=== PATIENT | male | born 1965 | race African-American/Black ===

== ENCOUNTER 2019-03-13 15:34 | Emergency (ER) | payer MEDICAID ==
[~2019-03-13] VITALS: Ht 177.8 cm; Wt 80.0 kg
[2019-03-13 15:39] VITALS: BP 146/77
--- NOTE | 2019-03-13 15:58 | NUR ---
PT HERE WITH C/O RIGHT INDEX FINGER SWELLING AND POSSIBLE INFECTION X 2 WEEKS.
[2019-03-13] MEDS ORDERED: LIDOCAINE 1%, 10ML INFIL ONE (16:00)
[2019-03-13] MEDS ORDERED: DIPH,PERTUSS(ACELL),TET VAC/PF 0.5 ML IM-VACC ONE ×2 (16:00→16:01)
[2019-03-13] MEDS ORDERED: LIDOCAINE-MPF 1%, 5ML ONE (16:01)
--- NOTE | 2019-03-13 16:08 | NUR ---
PT MEDICATED PER ORDERS.
--- NOTE | 2019-03-13 16:52 | NUR ---
SHELLACKER AT BEDSIDE FOR I&D.
--- NOTE | 2019-03-13 18:10 | NUR ---
Patient/Caregiver given discharge instructions and they have confirmed that they understand the instructions. Patient ambulatory with steady gait.
== END 2019-03-13 18:06 ==
LOC: ED 18:00
DX: L03.011 Cellulitis of right finger (principal); F17.200 Nicotine dependence, unspecified, uncomplicated
CPT/HCPCS: 10060; 90471; 90715; 99283

== ENCOUNTER 2020-04-03 16:05 | Emergency (ER) | payer MEDICAID ==
[~2020-04-03] VITALS: Ht 177.8 cm; Wt 73.9 kg
[2020-04-03 16:09] VITALS: BP 152/85
== END 2020-04-03 16:57 | disposition home or self-care (01) ==
LOC: ED 16:50
DX: L02.416 Cutaneous abscess of left lower limb (principal)
CPT/HCPCS: 99283